=== PATIENT | female | born 1945 | race Caucasian/White ===

== ENCOUNTER 2020-07-03 13:33 | Emergency (ER) | payer MEDICARE ==
[~2020-07-03] VITALS: Ht 157.5 cm; Wt 81.0 kg
[2020-07-03 13:38] VITALS: BP 155/110
--- NOTE | 2020-07-03 13:57 | PHYS DOC ---
General Adult EDM: Chief Complaint: LACERATION/AVULSION HPI: HPI: Patient is a 74 year old female who presents with was going into a winery today when she was walking and there was a rubber floor mat and the other side of the doorway when her shoe got caught in the lip of it and she tripped and fell onto a metal cart. This caused what looks like a 1 inch laceration to the back of her head. She denies LOC, headache, pain, dizziness, nausea, vomiting, abdominal pain, back pain, neck pain, joint pain, extremity pain. She denies being on any kind of a blood thinner. Review of Systems: Review of Systems: Constitutional: Denies fever or chills. [] Eyes: Denies change in visual acuity. [] HENT: Denies nasal congestion or sore throat. [] Respiratory: Denies cough or shortness of breath. [] Cardiovascular: Denies chest pain or edema. [] GI: Denies abdominal pain, nausea, vomiting, bloody stools or diarrhea. [] : Denies dysuria. [] Musculoskeletal: Denies back pain or joint pain. + Fall [] Integument: Denies rash. + Laceration to the back of the head [] Neurologic: Denies headache, focal weakness or sensory changes. [] Endocrine: Denies polyuria or polydipsia. [] Lymphatic: Denies swollen glands. [] Psychiatric: Denies depression or anxiety. [] Heart Score: Risk Factors: Risk Factors: DM, Current or recent (<one month) smoker, HTN, HLP, family history of CAD, obesity. Risk Scores: Score 0 - 3: 2.5% MACE over next 6 weeks - Discharge Home Score 4 - 6: 20.3% MACE over next 6 weeks - Admit for Clinical Observation Score 7 - 10: 72.7% MACE over next 6 weeks - Early Invasive Strategies Current Medications: Current Medications Medications (Trade) Dose Ordered Sig/[facility] Start Time Stop Time Status Last Admin Dose Admin Lidocaine HCl (Lidocaine 1% 20ml Vial) 20 ml 1X ONCE 07/03/20 14:00 07/03/20 14:01 UNV Physical Exam: PE: Constitutional: Well developed, well nourished, no acute distress, non-toxic appearance. [] HENT: Normocephalic, atraumatic, bilateral external ears normal, oropharynx moist, no oral exudates, nose normal. [] Eyes: PERRLA, EOMI, conjunctiva normal, no discharge. [] Neck: Normal range of motion, no tenderness, supple, no stridor. [] Cardiovascular:Heart rate regular rhythm, no murmur [] Lungs & Thorax: Bilateral breath sounds clear to auscultation [] Abdomen: Bowel sounds normal, soft, no tenderness, no masses, no pulsatile masses. [] Skin: Warm, dry, no erythema, no rash. 1 inch laceration to the back of the head. [] Back: No tenderness, no CVA tenderness. [] Extremities: No tenderness, no cyanosis, no clubbing, ROM intact, no edema. [] Neurologic: Alert and oriented X 3, normal motor function, normal sensory function, no focal deficits noted. [] Psychologic: Affect normal, judgement normal, mood normal. [] EKG: EKG: [] Radiology/Procedures: Radiology/Procedures: [] Impression: [facility] [address] [place] [address] IMAGING REPORT Signed PATIENT: THELMA SILVA ACCOUNT: [id number] : 1945 LOCATION: ER AGE: 74 SEX: F EXAM STATUS: PRE ER ORD. PHYSICIAN: LOREN BROWN APRN REASON: fall, laceration back of head PROCEDURE: CT HEAD AND CERVICAL SPINE WO EXAM: Head cervical spine CT without contrast. HISTORY: Fall. TECHNIQUE: Computed tomographic images of the head and cervical spine were obtained without contrast. *One or more of the following individualized dose reduction techniques were utilized for this examination: 1. Automated exposure control. 2. Adjustment of the mA and/or kV according to patient size. 3. Use of iterative reconstruction technique. COMPARISON: 05/19/2019. FINDINGS: Head: There is no acute hemorrhage. There is encephalomalacia within the right anterior temporal lobe with overlying craniotomy changes. There is ossification along the anterior right middle cranial fossa fossa. There are cerebral white matter changes, likely due to chronic small vessel disease. There is cerebral volume loss. There is right maxillary sinus opacification with sinus wall thickening due to chronic sinusitis. The mastoid air cells are clear. There is a small soft tissue hematoma within the posterior scalp to the right of midline. Body is seen. Cervical spine: There is mild cervical kyphosis. There is minimal anterolisthesis of C3 on C4. There is degenerative endplate remodeling with disc space narrowing and osteophytosis primarily at C5-C6 and C6-C7. There is multilevel facet arthropathy. There is no fracture or suspicious osseous lesion. The combination of degenerative changes results in severe right foraminal stenosis at C2-C3, moderate right foraminal stenosis at C3-C4, moderate left and mild right foraminal stenosis at C4-C5, moderate to severe right and severe left foraminal stenosis at C5-C6, and [id number] right and severe left foraminal stenosis at C6-C7. IMPRESSION: 1. No acute intracranial finding or evidence of acute cervical spine trauma. 2. Posterior scalp soft tissue hematoma to the right of midline. 3. Bilateral cerebral white matter changes, likely due to chronic small vessel disease. 4. Encephalomalacia within the right temporal lobe with overlying craniotomy changes. There is ossification along the anterior right middle cranial fossa which is benign and possibly due to dural ossification or an ossified meningioma. 5. Multilevel degenerative change involving the cervical spine, resulting in stenosis as described above. Electronically signed by: Della Davison MD (07/03/2020 2:15 PM) [facility] DICTATED and SIGNED BY: DELLA DAVISON MD DATE: 07/03/20 [id number] 0 Course & Med Decision Making: Course & Med Decision Making Pertinent Labs and Imaging studies reviewed. (See chart for details) See HPI. Ambulatory with a steady gait using a cane. 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 No joint deformities or laxities. No other bruising or lacerations or lesions. There is no tenderness to the back of the head where the laceration has occurred. There is 1+ swelling to the area. Gauze is placed and head is wrapped to hold pressure. Patient states her last tetanus shot was less than 5 years ago. No focal bony spinal tenderness. Full range of motion of her neck. PERRLA. Denies any vision changes or numbness and tingling. Laceration repair Location: Back of head scalp, 1 inch Local anesthesia: 1% lidocaine Interrupted sutures/Internal sutures: 7 yo Nerve/ligament/muscle damage: None Cleaning and irrigation: Chlorhexidine and saline The appropriate timeout was taken. The area was prepped and draped in the usual sterile fashion. The wound was copiously irrigated with normal saline and chlorhexidine. Patient tolerated well without complication. Dressing was applied to the area follow-up education is given to observe for signs and symptoms of infection, bleeding and to follow-up promptly if these occur. Patient can return in 48 hours for a wound recheck. Sutures to be removed in 7 to 10 days. Dragon Disclaimer: Dragon Disclaimer: This electronic medical record was generated, in whole or in part, using a voice recognition dictation system. Departure Departure Impression: Primary Impression: Laceration of head Qualified Codes: S01.01XA - Laceration without foreign body of scalp, initial encounter Additional Impression: Fall Qualified Codes: W19.XXXA - Unspecified fall, initial encounter Disposition: 01 DC HOME SELF CARE/HOMELESS Condition: STABLE Patient Instructions: Fall Prevention and Home Safety, [id number], Head Injury, Adult, Laceration Care, Adult Additional Instructions: Follow-up with primary care provider. If you begin having nausea, dizziness, severe headache, focal weakness or vision changes return to emergency room. This is yo need to be removed in 10 days. Keep the area clean. Watch for signs of infection. Take Tylenol for your pain if there is any. You could also use ice to the area. LOREN BROWN APRN Jul 03, 2020 13:57
[2020-07-03] MEDS ORDERED: LIDOCAINE 1% Multi-Dose 20 ML VIAL. INJ ONE (14:00)
--- NOTE | 2020-07-03 14:28 | RAD ---
EXAM: Head cervical spine CT without contrast. HISTORY: Fall. TECHNIQUE: Computed tomographic images of the head and cervical spine were obtained without contrast. *One or more of the following individualized dose reduction techniques were utilized for this examina tion: 1. Automated exposure control. 2. Adjustment of the mA and/or kV according to patient size. 3. Use of iterative reconstruction technique. COMPARISON: 05/19/2019. FINDINGS: Head: There is no acute hemorrhage. There is encephalomalacia within the right anterior temporal lobe with overlying craniotomy changes. There is ossification along the anterior right middle cranial fos sa fossa. There are cerebral white matter changes, likely due to chronic small vessel disease. There is cerebral volume loss. There is right maxillary sinus opacification with sinus wall thickening due to chronic sinusitis. The mastoid air cells are clear. There is a small soft tissue hematoma within t he posterior scalp to the right of midline. Body is seen. Cervical spine: There is mild cervical kyphosis. There is minimal anterolisthesis of C3 on C4. There is degenerative endplate remodeling with disc space narrowing and osteophytosis primarily at C5-C6 an d C6-C7. There is multilevel facet arthropathy. There is no fracture or suspicious osseous lesion. Th e combination of degenerative changes results in severe right foraminal stenosis at C2-C3, moderate r ight foraminal stenosis at C3-C4, moderate left and mild right foraminal stenosis at C4-C5, moderate to severe right and severe left foraminal stenosis at C5-C6, and [id number] right and severe le ft foraminal stenosis at C6-C7. IMPRESSION: 1. No acute intracranial finding or evidence of acute cervical spine trauma. 2. Posterior scalp soft tissue hematoma to the right of midline. 3. Bilateral cerebral white matter changes, likely due to chronic small vessel disease. 4. Encephalomalacia within the right temporal lobe with overlying craniotomy changes. There is ossifi cation along the anterior right middle cranial fossa which is benign and possibly due to dural ossifi cation or an ossified meningioma. 5. Multilevel degenerative change involving the cervical spine, resulting in stenosis as described ab ove. Electronically signed by: Della Davison MD (07/03/2020 2:15 PM) [facility]
== END 2020-07-03 14:55 | disposition home or self-care (01) ==
LOC: ER 13:33
DX: S01.01XA Laceration without foreign body of scalp, initial encounter (principal); W01.0XXA Fall on same level from slipping, tripping and stumbling without subsequent striking against object, initial encounter; Y93.01 Activity, walking, marching and hiking; Y92.89 Other specified places as the place of occurrence of the external cause; Y99.8 Other external cause status
CPT/HCPCS: 12001; 70450; 72125; 99284; J3490; 12002